=== PATIENT | male | born 1960 | race Hispanic/Latino ===

== ENCOUNTER 2018-04-04 06:27 | Day surgery (SDC) | payer OTHER ==
[2018-04-04 07:03] VITALS: BMI 22.6
[2018-04-04] MEDS ORDERED: Propofol 10 mg/ml Inj (20 ML) ONE (07:32)
[2018-04-04] MEDS ORDERED: Phenylephrine 10 mg/ml Inj ONE (07:33)
[2018-04-04] MEDS ORDERED: ePHEDrine 50 mg/ml Inj ONE (07:33)
[2018-04-04] MEDS ORDERED: Methylene Blue 10 mg/mL(10ml) IV ONE (08:12)
--- NOTE | 2018-04-04 08:12 | CP.SDSHP ---
Same Day Surgery H & P - History Proposed Procedure: colonoscopy Pre-Op Diagnosis: crohn's disease - Previous Medical/Surgical History Cardiac: Hypertension Endocrine/Metabolic: Diabetes - Allergies Allergies: Allergies pseudoephedrine HCl [From Sudafed] Allergy (Verified 04/04/18 06:49) "HEART RACES" DENIES NAUSEA - Physical Exam General Appearance: NAD Vital Signs: Vital Signs 04/04/18 06:45 Temperature 97.3 F L Pulse Rate 63 Respiratory 199 H Rate Blood Pressure 151/93 H O2 Sat by Pulse 100 Oximetry Mental Status: Alert & Oriented x3 Neuro: WNL Heart: WNL Lungs: WNL GI: WNL - {Optional Preform as Required} Abdomen: WNL - Impression Pt. Evaluated Today:Candidate for Anesthesia & Procedure: Yes - Date & Time Date: 04/04/18 Time: 08:12 Short Stay Discharge - Short Stay Discharge Admitting Diagnosis/Reason for Visit: CROHN'S DISEASE Disposition: HOME/ ROUTINE
[2018-04-04 08:51] VITALS: TEMP 97.8
[2018-04-04 09:03] VITALS: O2SAT 100
[2018-04-04 09:38] VITALS: BP 122/72; PULSE 55; RESP 14
== END 2018-04-04 09:36 | disposition home or self-care (01) ==
LOC: C.ENDO 06:27
PROVIDERS: ATTEND Internal Medicine Gastroenterology
DX: K50.019 Crohn's disease of small intestine with unspecified complications (principal); K63.3 Ulcer of intestine
CPT/HCPCS: 45380; 82948; 88305; J2001; J2370; J2704